=== PATIENT | female | born 1990 | race Caucasian/White ===

== ENCOUNTER 2016-06-03 14:52 | Emergency (ER) | payer OTHER ==
[~2016-06-03] VITALS: Wt 56.0 kg
[~2016-06-03 14:52] MED LIST: CLIN-73 PO; DOCU-144 PO; HYDR-3498 PO; LACT1CAP17 PO; MED4DP PO; NAPR-260 PO
[2016-06-03] MEDS ORDERED: BELLADONNA/PHENOBARBITAL TAB PO STA (17:03)
[2016-06-03] MEDS ORDERED: LIDOCAINE/MYLANTA 40 ML BTL PO STA (17:03)
[2016-06-03 18:16] LABS: ADD UMIC YES; URINE BILIRUBIN (Dip) NEGATIVE (NEGATIVE); URINE BLOOD (Dip) 1+ (NEGATIVE); URINE COLOR YELLOW (YELLOW); URINE GLUCOSE (Dip) NEGATIVE (NEGATIVE); URINE KETONES (Dip) 15 (NEGATIVE); URINE LEUKOCYTE ESTERASE (Dip) NEGATIVE (NEGATIVE); URINE NITRITE (Dip) NEGATIVE (NEGATIVE); URINE TOTAL PROTEIN (Dip) 1+ (NEGATIVE); URINE UROBILINOGEN (Dip) 1.0 E.U./dL (0.1-1.0)
[2016-06-03 18:24] LABS: BASOPHIL # 0.1 10^3/ul (0.0-0.1); BASOPHILS % 0.4 % (0.0-2.0); EOSINOPHILS # 0.2 10^3/ul (0.0-0.5); EOSINOPHILS % 1.4 % (0.0-7.0); HEMATOCRIT 44.8 % (37.0-47.0); LYMPHOCYTES % 13.9 % (15.0-51.0); MEAN CORPUSCULAR HEMOGLOBIN 29.3 pg (29.0-33.0); MEAN CORPUSCULAR HGB CONC 33.5 g/dl (32.0-37.0); MEAN CORPUSCULAR VOLUME 87.6 fl (82.0-101.0); MEAN PLATELET VOLUME 7.7 fl (7.4-10.4); MONOCYTE # 0.6 10^3/ul (0.3-0.9); MONOCYTES % 4.3 % (0.0-11.0); NEUTROPHIL # 11.2 10^3/ul (1.6-7.5); PLATELET COUNT 488 10^3/UL (140-440); RED BLOOD COUNT 5.11 10^6/ul (4.20-5.40); RED CELL DISTRIBUTION WIDTH 14.9 % (11.5-14.5); UNCORRECTED WBC 14.1 10^3/ul (4.8-10.8); WHITE BLOOD COUNT 14.1 10^3/ul (4.8-10.8)
[2016-06-03 18:29] LABS: CONDITION 1; LH ANALYZER COMMENTS 1
[2016-06-03 18:39] LABS: ALBUMIN 3.8 g/dl (3.3-4.9); POTASSIUM 3.3 mmol/L (3.5-5.1)
[2016-06-03 18:41] LABS: CREATININE 0.7 mg/dl (0.44-1.00)
[2016-06-03 18:42] LABS: ALBUMIN/GLOBULIN RATIO 1.26; BILIRUBIN,INDIRECT 0.3 mg/dl (0-1.1); BILIRUBIN,TOTAL 0.3 mg/dl (0.2-1.3); TOTAL PROTEIN 6.8 g/dl (6.1-8.1)
[2016-06-03 18:43] LABS: CALCIUM 9.1 mg/dl (8.4-10.2)
[2016-06-03 18:53] LABS: MUCUS,URINE MODERATE; SQUAMOUS EPITHELIAL CELL,UR MODERATE
[2016-06-03 18:54] LABS: BACTERIA,URINE FEW
[2016-06-03] MEDS ORDERED: FAMO40TA38 PO (18:56)
[2016-06-03] MEDS ORDERED: ONDA4TAB14 PO (18:56)
--- NOTE | 2016-06-03 19:00 | ERD ---
ER Documentation Chief Complaint Date/Time DATE: 06/03/16 TIME: 18:57 Chief Complaint gen abd pain for 2 wks. with diarrhea and vomiting. no dysuria no vag bleed HPI Patient is a 25-year-old otherwise healthy female who presents with generalized abdominal pain that has been going on intermittently for 2 weeks. She admits to diarrhea, nausea, and vomiting. Pain is usually worse after food. Denies any dysuria hematuria or increased urinary frequency. Last menstrual period was May 17. Pain is intermittent she states is all over her stomach and easily 9 out of 10. ROS All systems reviewed and are negative except as per history of present illness. Medications Home Meds Active Scripts Famotidine* (Pepcid*) 40 Mg Tablet, 40 MG PO BID, #60 TAB Prov:NICOLA FARRELL PA-C 06/03/16 Ondansetron (Ondansetron Odt) 4 Mg Tab.rapdis, 4 MG PO Q6H Y for NAUSEA AND/OR VOMITING, #20 TAB Prov:NICOLA FARRELL PA-C 06/03/16 Lactobac Cmb #3/Fos/Pantethine (PROBIOTIC & ACIDOPHILUS CAP) 1 Each Capsule, 1 EACH PO BID WITH MEALS for 14 Days, CAP Prov:ALPHONSE MORA MD 04/25/16 Methylprednisolone* (Medrol* DOSE PACK) 4 Mg/Dose-Pack Tab.ds.pk, 4 MG PO . DIRECTED for 5 Days, PACKET Prov:ALPHONSE MORA MD 04/25/16 Clindamycin Hcl* (Clindamycin Hcl*) 300 Mg Capsule, 600 MG PO Q6 for 7 Days, CAP Prov:ALPOHNSE MORA MD 04/25/16 Hydrocodone Bit-Acetaminophen (Hydrocodone Bit-APAP) 5-325MG Tablet, 1 TAB PO Q6H Y for MODERATE PAIN LEVEL 4-6 for 7 Days, #42 TAB Prov:ALPHONSE MORA MD 04/25/16 Docusate Sodium* (Colace*) 100 Mg Capsule, 100 MG PO Q12H Y for CONSTIPATION for 10 Days, #20 CAP Prov:ALPHONSE MORA MD 04/25/16 Naproxen* (Naprosyn*) 500 Mg Tablet, 500 MG PO BID Y for PAIN AND/OR INFLAMMATION, #30 TAB Prov:AMI GOMEZ PA-C 04/14/16 Allergies Allergies: Coded Allergies: No Known Allergy (Unverified , 04/22/16) CHECK WITH PATIENT AND FAMILY PMhx/Soc History of Surgery: No Anesthesia Reaction: No Hx Neurological Disorder: No Hx Cardiac Disorders: No Hx Psychiatric Problems: No Hx Miscellaneous Medical Probl: No Hx Alcohol Use: No Hx Substance Use: No Hx Tobacco Use: No Smoking Status: Never smoker FmHx Family History: No diabetes Physical Exam Vitals Vital Signs Date Time Temp Pulse Resp B/P Pulse Ox O2 Delivery O2 Flow Rate FiO2 06/03/16 14:55 98.2 80 20 114/68 99 Physical Exam General: well developed, well nourished, alert, nontoxic, no distress Head: normocephalic, atraumatic Eyes: PERRL, normal conjunctiva Neck: Supple, nontender, no lymphadenopathy, no midline tenderness Respiratory: Clear to auscaultation bilaterally, speaks in full sentences, no use of accesory muscles or labored breathing, no rales, ronchi, or wheezing Cardiovascular: RRR, No murmurs GI: soft, non tender, non distended, negative murphys sign, negative mcburneys point tenderness, no cva tenderness bilaterally, no rebound or guarding Back: no midline tenderness, no step offs or bony abnormalities, sensation to light touch in tact Result Diagram: 06/03/16 1800 06/03/16 1800 Results 24 hrs Laboratory Tests Test 06/03/16 18:00 Alanine Aminotransferase (ALT/SGPT) 20IU/L Albumin 3.8g/dl Albumin/Globulin Ratio 1.26 Alkaline Phosphatase 67IU/L Anion Gap 15 Aspartate Amino Transf (AST/SGOT) 21IU/L Basophils # 0.110^3/ul Basophils % 0.4% Blood Morphology Comment Blood Urea Nitrogen 8mg/dl Calcium Level 9.1mg/dl Carbon Dioxide Level 29mmol/L Chloride Level 101mmol/L Creatinine 0.70mg/dl Direct Bilirubin 0.00mg/dl Eosinophils # 0.210^3/ul Eosinophils % 1.4% Globulin 3.00g/dl Glucose Level 92mg/dl Hematocrit 44.8% Hemoglobin 15.0g/dl Indirect Bilirubin 0.3mg/dl Lipase 45U/L Lymphocytes # 2.010^3/ul Lymphocytes % 13.9% Mean Corpuscular Hemoglobin 29.3pg Mean Corpuscular Hemoglobin Concent 33.5g/dl Mean Corpuscular Volume 87.6fl Mean Platelet Volume 7.7fl Monocytes # 0.610^3/ul Monocytes % 4.3% Neutrophils # 11.210^3/ul Neutrophils % 80.0% Nucleated Red Blood Cells # 0.010^3/ul Nucleated Red Blood Cells % 0.0/100WBC Platelet Count 00552^3/UL Potassium Level 3.3mmol/L Red Blood Count 5.1110^6/ul Red Cell Distribution Width 14.9% Serum HCG, Qualitative NEGATIVE Sodium Level 142mmol/L Total Bilirubin 0.3mg/dl Total Protein 6.8g/dl Urine Bacteria FEW Urine Bilirubin NEGATIVE Urine Clarity CLEAR Urine Color YELLOW Urine Glucose NEGATIVE% Urine Hemoglobin 1+ Urine Ketones 15 Urine Leukocyte Esterase NEGATIVE Urine Microscopic RBC 10-25/HPF Urine Microscopic WBC 0-2/HPF Urine Mucus MODERATE Urine Nitrite NEGATIVE Urine Specific [place] 1.015 Urine Squamous Epithelial Cells MODERATE Urine Total Protein 1+ Urine Urobilinogen 1.0 E.U./dL Urine pH 7.5 White Blood Count 14.110^3/ul Current Medications Medications (Trade) Dose Ordered Sig/Priti Route PRN Reason Start Time Stop Time Status Last Admin Dose Admin Miscellaneous Medication (Gi Cocktail (2)) 40 ml ONCE STAT PO 06/03/16 17:03 06/03/16 17:04 DC 06/03/16 18:03 Belladonna/ Phenobarbital () 2 tab ONCE STAT PO 06/03/16 17:03 06/03/16 17:04 DC 06/03/16 18:03 Procedures/MDM 25-year-old female presents with generalized abdominal pain. She is well- appearing in no distress and all of her vital signs are within normal limits. Her GI examination is benign and completely nontender throughout. No tenderness over her appendix or gallbladder. I doubt acute abdomen. Patient's labs were all normal. Low suspicion for any acute emergent etiology. Patient is discharged with copies of the labs that she can follow with primary care as well as a prescription for Pepcid and Zofran. Recommended this patient follow up with her primary care doctor within 48 hours or return to the emergency room for any worsening of symptoms. However this time I do believe there is suitable for outpatient management. I answered all their questions and they agreed with the plan and were discharged home. Departure Diagnosis: Primary Impression: Abdominal pain Condition: Stable Patient Instructions: Abdominal Pain Additional Instructions: Call your primary care doctor TOMORROW for an appointment during the next 1-2 days.See the doctor sooner or return here if your condition worsens before your appointment time. NICOLA FARRELL PA-C Jun 03, 2016 19:00
[2016-06-03 19:13] VITALS: BP 122/78; PULSE 71; RESP 18; TEMP 98.1
== END 2016-06-03 19:11 | disposition home or self-care (01) ==
LOC: FTE 14:52
DX: R10.84 Generalized abdominal pain (principal); R11.2 Nausea with vomiting, unspecified; J45.909 Unspecified asthma, uncomplicated
CPT/HCPCS: 36415; 80053; 81001; 81003; 83690; 84703; 85025; Z7502; Z7610; 99283